=== PATIENT | male | born 1940 | race Caucasian/White ===

== ENCOUNTER → 2017-06-17 | Outpatient (REF) | payer BC, MEDICARE | LOC: M LAB REF 13:21 | DX: R97.20 Elevated prostate specific antigen [PSA] (principal); R39.9 Unspecified symptoms and signs involving the genitourinary system | CPT/HCPCS: 87086 ==

== ENCOUNTER → 2017-07-19 | Outpatient (CLI) | payer MEDICARE, BC | LOC: M SMT PRO 08:20 | DX: R97.20 Elevated prostate specific antigen [PSA] (principal) | CPT/HCPCS: G0416 ==

== ENCOUNTER → 2017-08-02 | Outpatient (CLI) | payer BC, MEDICARE ==
[2017-08-02 12:53] LABS: HEMATOCRIT 38.2 % (42.0-52.0); HEMOGLOBIN 12.2 g/dl (13.5-17.5); MEAN CORPUSCULAR HEMOGLOBIN 26.6 pg (27.0-33.0); MEAN CORPUSCULAR HGB CONC 31.9 g/dl (32.0-36.5); MEAN CORPUSCULAR VOLUME 83.2 fl (80.0-96.0); PLATELET COUNT, AUTOMATED 435 10^3/uL (150-450); RED BLOOD COUNT 4.59 10^6/uL (4.30-6.10); RED CELL DISTRIBUTION WIDTH 14.1 % (11.5-14.5)
[2017-08-02 12:56] LABS: APPEARANCE, URINE CLEAR (CLEAR); BACTERIA, URINE AUTO NEGATIVE (NEGATIVE); BILIRUBIN, URINE AUTO NEGATIVE (NEGATIVE); BLOOD, URINE BLOOD 1+ (NEGATIVE); COLOR, URINE YELLOW (YELLOW); GLUCOSE, URINE (UA) AUTO NEGATIVE (NEGATIVE); KETONE, URINE AUTO NEGATIVE (NEGATIVE); LEUKOCYTE ESTERASE, URINE AUTO NEGATIVE (NEGATIVE); MUCUS, URINE SMALL (NEGATIVE); NITRITE, URINE AUTO NEGATIVE (NEGATIVE); PROTEIN, URINE AUTO NEGATIVE (NEGATIVE); RBC, URINE AUTO 2 /HPF (0-3); SPECIFIC GRAVITY URINE AUTO 1.016 (1.002-1.035); SQUAMOUS EPITHELIAL CELL UR AU 0 /HPF (0-6); UROBILINOGEN, URINE AUTO 0.2 mg/dL (0.0-2.0); WBC, URINE AUTO 0 /HPF (0-3)
[2017-08-02 13:07] LABS: INR 1.01; PROTHROMBIN TIME 13.4 SECONDS (12.4-14.5)
[2017-08-02 13:08] LABS: PARTIAL THROMBOPLASTIN TIME 37.8 SECONDS (26.8-37.9)
[2017-08-02 13:29] LABS: ALBUMIN 3.6 GM/DL (3.2-5.2); ALBUMIN/GLOBULIN RATIO 0.75 (1.00-1.93); ALKALINE PHOSPHATASE 119 U/L (45-117); ALT/SGPT 14 U/L (12-78); ANION GAP 7 MEQ/L (8-16); AST/SGOT 13 U/L (7-37); BILIRUBIN,TOTAL 0.4 MG/DL (0.2-1.0); BLOOD UREA NITROGEN 10 MG/DL (7-18); CALCIUM LEVEL 9.3 MG/DL (8.8-10.2); CARBON DIOXIDE LEVEL 29 MEQ/L (21-32); CHLORIDE LEVEL 103 MEQ/L (98-107); CREATININE FOR GFR 0.78 MG/DL (0.70-1.30); GLOMERULAR FILTRATION RATE > 60.0 (>42); GLUCOSE, FASTING 156 MG/DL (70-100); POTASSIUM SERUM 4.7 MEQ/L (3.5-5.1); SODIUM LEVEL 139 MEQ/L (136-145); TOTAL PROTEIN 8.4 GM/DL (6.4-8.2)
== END ==
LOC: M SMT 10:08
DX: Z01.818 Encounter for other preprocedural examination (principal); C61 Malignant neoplasm of prostate
CPT/HCPCS: 80053

== ENCOUNTER 2017-08-10 11:22 | Inpatient (IN) | payer MEDICARE ==
[2017-08-10] MEDS: ATORVASTATIN 20 MG TAB PO (09:00)
[2017-08-10] MEDS ORDERED: dexameTHASONE 4 MG/ML 1ML VIAL (J1100) As Ordered (11:38)
[2017-08-10] MEDS ORDERED: ROCURONIUM BROMIDE 50 MG/5 ML VIAL As Ordered ×2 (11:38→14:07)
[2017-08-10] MEDS ORDERED: LIDOCAINE 2% INJ 100 MG/5 ML SDV (FOR ANES.) As Ordered (11:38)
[2017-08-10] MEDS ORDERED: PROPOFOL 200 MG/20 ML VIAL As Ordered (11:38)
[2017-08-10] MEDS ORDERED: MIDAZOLAM INJ 2 MG/2 ML VIAL (J2250) As Ordered (11:39)
[2017-08-10] MEDS ORDERED: fentaNYL 250 MCG/5 ML INJECTION (J3010) As Ordered (11:39)
[2017-08-10] MEDS ORDERED: LIDOCAINE 1% MDV 20ML VIAL SQ (11:45)
[2017-08-10] MEDS: LR 1,000 ML IV ×2 (12:10→18:00)
[2017-08-10 12:32] LABS: BEDSIDE GLUCOSE 121 MG/DL (83-110)
[2017-08-10] MEDS ORDERED: MORPHINE 4 MG/ML 1ML VIAL/SYRINGE (J2270) IV (13:15)
[2017-08-10] MEDS ORDERED: GLUCAGON FOR INJ 1 MG VIAL (J1610) SC (13:15)
[2017-08-10] MEDS ORDERED: ACETAMINOPHEN TAB 650MG DOSE (2X325MG) PO (13:15)
[2017-08-10] MEDS ORDERED: PERCOCET 5MG/325MG TAB PO ×2 (13:15)
[2017-08-10] MEDS ORDERED: GLUCOSE 4 GM CHEW TABLET PO (13:15)
[2017-08-10] MEDS ORDERED: DEXTROSE 50% 50 ML SYRINGE IV (13:15)
[2017-08-10] MEDS: HEPARIN SOD (PORCINE) 5000 UNITS/ML VIAL SQ (13:23)
[2017-08-10] MEDS ORDERED: NEOSTIGMINE 10 MG/10 ML VIAL (J2710) As Ordered (13:58)
[2017-08-10] MEDS ORDERED: HYDROmorphone HCL 2 MG/ML 1ML VIAL (J1170) As Ordered (13:58)
[2017-08-10] MEDS ORDERED: ONDANSETRON 4MG/2ML VIAL (J2405) As Ordered (13:58)
[2017-08-10] MEDS ORDERED: GLYCOPYRROLATE INJ 0.2 MG/ML 2 ML VIAL As Ordered (13:58)
[2017-08-10] MEDS: HumaLOG INSULIN (NovoLOG) PER UNIT SC ×2 (17:30→21:00)
[2017-08-10] MEDS: BUPIVACAINE HCL 0.25% 30 ML VIAL As Ordered (17:35)
[2017-08-10] MEDS: LIDOCAINE 1% SDV INJ 30 ML VIAL As Ordered (17:35)
[2017-08-10] MEDS ORDERED: ONDANSETRON 4MG/2ML VIAL (J2405) IV (18:00)
[2017-08-10] MEDS ORDERED: fentaNYL 100 MCG/2 ML INJECTION (J3010) IV (18:00)
[2017-08-10] MEDS ORDERED: MORPHINE 10 MG/ML 1ML VIAL (J2270) IV (18:00)
[2017-08-10 18:19] LABS: HEMATOCRIT 34.4 % (42.0-52.0); MEAN CORPUSCULAR HEMOGLOBIN 26.2 pg (27.0-33.0); MEAN CORPUSCULAR VOLUME 81.9 fl (80.0-96.0); PLATELET COUNT, AUTOMATED 385 10^3/uL (150-450); RED CELL DISTRIBUTION WIDTH 14.1 % (11.5-14.5); WHITE BLOOD COUNT 7.1 10^3/uL (4.0-10.0)
[2017-08-10 18:44] LABS: ANION GAP 6 MEQ/L (8-16); BLOOD UREA NITROGEN 13 MG/DL (7-18); CALCIUM LEVEL 8.6 MG/DL (8.8-10.2); CARBON DIOXIDE LEVEL 27 MEQ/L (21-32); CHLORIDE LEVEL 103 MEQ/L (98-107); CREATININE FOR GFR 0.91 MG/DL (0.70-1.30); GLOMERULAR FILTRATION RATE > 60.0 (>42); GLUCOSE, FASTING 166 MG/DL (70-100); POTASSIUM SERUM 4.8 MEQ/L (3.5-5.1); SODIUM LEVEL 136 MEQ/L (136-145)
[2017-08-10] MEDS: NS 1,000 ML IV ×2 (19:30→21:05)
[2017-08-10] MEDS: ASPIRIN 81 MG ENTERIC TAB PO (21:20)
[2017-08-10] MEDS: DOCUSATE SODIUM 100 MG CAP PO (21:21)
[2017-08-10] MEDS: HEPARIN SOD (PORCINE) 5000 UNITS/ML VIAL SC (21:21)
[2017-08-10] MEDS: ENALAPRIL MALEATE 10 MG TAB PO (21:21)
[2017-08-10] MEDS: CEFAZOLIN SOD 1 GM in APPROPRIATE DILUENT 1 EA IV (21:50)
[2017-08-10 21:55] LABS: BEDSIDE GLUCOSE 203 MG/DL (83-110)
[2017-08-10] MEDS: ONDANSETRON 4MG/2ML VIAL (J2405) IV (22:32)
[2017-08-11] MEDS: NS 1,000 ML IV (02:38)
[2017-08-11] MEDS: HEPARIN SOD (PORCINE) 5000 UNITS/ML VIAL SC ×2 (05:11→15:01)
[2017-08-11] MEDS: CEFAZOLIN SOD 1 GM in APPROPRIATE DILUENT 1 EA IV (05:12)
[2017-08-11 06:41] LABS: HEMATOCRIT 32.4 % (42.0-52.0); HEMOGLOBIN 10.3 g/dl (13.5-17.5); MEAN CORPUSCULAR HEMOGLOBIN 26.3 pg (27.0-33.0); MEAN CORPUSCULAR HGB CONC 31.8 g/dl (32.0-36.5); MEAN CORPUSCULAR VOLUME 82.9 fl (80.0-96.0); PLATELET COUNT, AUTOMATED 359 10^3/uL (150-450); RED BLOOD COUNT 3.91 10^6/uL (4.30-6.10); RED CELL DISTRIBUTION WIDTH 14.2 % (11.5-14.5); WHITE BLOOD COUNT 6.2 10^3/uL (4.0-10.0)
[2017-08-11 07:09] LABS: ANION GAP 8 MEQ/L (8-16); BLOOD UREA NITROGEN 12 MG/DL (7-18); CALCIUM LEVEL 8.3 MG/DL (8.8-10.2); CARBON DIOXIDE LEVEL 26 MEQ/L (21-32); CHLORIDE LEVEL 102 MEQ/L (98-107); CREATININE FOR GFR 0.76 MG/DL (0.70-1.30); GLOMERULAR FILTRATION RATE > 60.0 (>42); GLUCOSE, FASTING 171 MG/DL (70-100); POTASSIUM SERUM 4.2 MEQ/L (3.5-5.1); SODIUM LEVEL 136 MEQ/L (136-145)
[2017-08-11] MEDS: DOCUSATE SODIUM 100 MG CAP PO (08:06)
[2017-08-11] MEDS: ATORVASTATIN 20 MG TAB PO (08:06)
[2017-08-11] MEDS: HumaLOG INSULIN (NovoLOG) PER UNIT SC ×2 (08:07→12:00)
[2017-08-11 12:01] LABS: BEDSIDE GLUCOSE 165 MG/DL (83-110)
== END 2017-08-11 14:51 | disposition home or self-care (01) | DRG 708 ==
LOC: M OR 11:22 → M MS5PR 19:03
PROVIDERS: Urology
PROC: 0VT04ZZ Resection of Prostate, Percutaneous Endoscopic Approach (ICD-10-PCS; principal; 2017-08-10 13:13)
PROC: 8E0W4CZ Robotic Assisted Procedure of Trunk Region, Percutaneous Endoscopic Approach (ICD-10-PCS; 2017-08-10 13:13)
DX: C61 Malignant neoplasm of prostate (principal); Z79.82 Long term (current) use of aspirin; Z79.899 Other long term (current) drug therapy; E11.9 Type 2 diabetes mellitus without complications

== ENCOUNTER → 2017-09-13 | Outpatient (CLI) | payer MEDICARE ==
[2017-09-13 19:32] LABS: PROSTATIC SPECIFIC AG MONITOR 0.02 NG/ML (< 4.0)
== END ==
LOC: M SMT 11:15
DX: C61 Malignant neoplasm of prostate (principal)
CPT/HCPCS: 84153

== ENCOUNTER → 2017-12-07 | Outpatient (CLI) | payer MEDICARE ==
[2017-12-07 13:53] LABS: PROSTATIC SPECIFIC AG MONITOR < 0.01 NG/ML (< 4.0)
== END ==
LOC: M SMT 10:41
DX: C61 Malignant neoplasm of prostate (principal)
CPT/HCPCS: 84153

== ENCOUNTER → 2018-03-28 | Outpatient (CLI) | payer MEDICARE ==
[2018-03-28 14:13] LABS: PROSTATIC SPECIFIC AG MONITOR < 0.0 NG/ML (< 4.0)
== END ==
LOC: M SMT 10:11
DX: C61 Malignant neoplasm of prostate (principal)
CPT/HCPCS: 84153

== ENCOUNTER → 2018-06-28 | Outpatient (CLI) | payer MEDICARE ==
[~2018-06-28] MED LIST: ASPI81TA63 PO; ATOR40TA75 PO; CIPR-249 PO; COLA100C5 PO; ENAL20TA PO; METF500T13 PO; MULT1TAB10 PO; OMEG12002 PO; OXYC1TAB23 PO; TYLE325T5 PO
== END ==
LOC: M SMT 11:45
PROVIDERS: ATTEND Urology
DX: C61 Malignant neoplasm of prostate (principal)

== ENCOUNTER → 2018-10-03 | Outpatient (CLI) | payer MEDICARE ==
[~2018-10-03] MED LIST changes: +ASPI1TAB8 PO; -ASPI81TA63 PO
== END ==
LOC: M SMT 11:46
PROVIDERS: ATTEND Urology
DX: C61 Malignant neoplasm of prostate (principal)

== ENCOUNTER → 2019-01-10 | Outpatient (CLI) | payer MEDICARE | LOC: M SMT 09:13 | PROVIDERS: ATTEND Urology | DX: C61 Malignant neoplasm of prostate (principal) ==

== ENCOUNTER → 2019-04-19 | Outpatient (CLI) | payer MEDICARE | LOC: M PLALAB 11:19 | PROVIDERS: ATTEND Urology | DX: C61 Malignant neoplasm of prostate (principal) ==

== ENCOUNTER → 2019-07-10 | Outpatient (REF) | payer MEDICARE | LOC: M LABSMT 09:54 | PROVIDERS: ATTEND Urology | DX: C61 Malignant neoplasm of prostate (principal) ==

== ENCOUNTER → 2020-01-25 | Outpatient (REF) | payer MEDICARE ==
[~2020-01-25] MED LIST changes: -ENAL20TA PO; +ENAL20TA11 PO
== END ==
LOC: M PLALAB 09:04
PROVIDERS: ATTEND Urology
DX: C61 Malignant neoplasm of prostate (principal)

== ENCOUNTER → 2020-07-22 | Outpatient (REF) | payer MEDICARE | LOC: M SMT 15:10 | PROVIDERS: ATTEND Urology | DX: C61 Malignant neoplasm of prostate (principal) ==

== ENCOUNTER → 2021-01-20 | Outpatient (CLI) | payer MEDICARE | LOC: M PLALAB 11:53 | PROVIDERS: ATTEND Urology | DX: C61 Malignant neoplasm of prostate (principal) ==

== ENCOUNTER → 2021-07-16 | Outpatient (CLI) | payer MEDICARE | LOC: M LAB 12:10 → M PLALAB 12:10 | PROVIDERS: ATTEND Urology | DX: C61 Malignant neoplasm of prostate (principal) ==

== ENCOUNTER → 2022-07-21 | Outpatient (CLI) | payer OTHER ==
[~2022-07-21] MED LIST changes: +ENAL1TAB52 PO; -ENAL20TA11 PO
== END ==
LOC: M PLALAB 11:35
PROVIDERS: ATTEND Urology
DX: C61 Malignant neoplasm of prostate (principal)

== ENCOUNTER → 2023-01-26 | Outpatient (CLI) | payer OTHER | LOC: M PLALAB 11:52 | PROVIDERS: ATTEND Urology | DX: C61 Malignant neoplasm of prostate (principal) ==

== ENCOUNTER → 2023-09-15 | Outpatient (CLI) | payer OTHER | LOC: M PLALAB 13:48 | PROVIDERS: ATTEND Urology | DX: C61 Malignant neoplasm of prostate (principal) ==